=== PATIENT | female | born 1990 | race Caucasian/White ===

== ENCOUNTER 2022-01-22 10:36 | Emergency (ER) | payer OTHER, SELFPAY ==
[2022-01-22 10:47] VITALS: BP 118/69; PULSE 107; RESP 16; TEMP 36.3; O2SAT 100
--- NOTE | 2022-01-22 11:23 | ED.URI ---
HPI - URI/Sore Throat General Chief Complaint: Upper Respiratory Infection Stated Complaint: fever sore throat Source: patient and RN notes reviewed Mode of arrival: ambulatory Limitations: no limitations History of Present Illness HPI Narrative: 31 y/o female with DM presented for c/o headache, Fever, sore throat, nausea, body aches and fatigue for 4 days. Last night Temp 102.9. denies shortness of breath, wheezing, vomiting, diarrhea. Taking Tylenol for symptoms. Took 2 Negative covid tests at home. MD elicited complaint: cough Related Data Home Medications Medication Instructions Recorded Confirmed bupropion HCl 300 mg 24 hr tablet, 300 mg PO DAILY 01/22/22 01/22/22 extended release insulin lispro 100 unit/mL See Rx Instructions .Route .COMPLEX 01/22/22 01/22/22 subcutaneous solution (Humalog U-100 Insulin) levothyroxine 50 mcg tablet 50 mcg PO DAILY 01/22/22 01/22/22 sertraline 50 mg tablet 50 mg PO DAILY 01/22/22 01/22/22 Allergies Allergy/AdvReac Type Severity Reaction Status Date / Time No Known Allergies Allergy Unknown Verified 01/22/22 11:16 Review of Systems Review of Systems: CONSTITUTIONAL: Endorses malaise, chills, sweats, fever EYES: Denies visual changes, redness, or discharge ENT: Reports rhinorrhea, congestion, otalgia, sore throat CARDIOVASCULAR: Denies chest pain, palpitations, edema RESPIRATORY: Reports cough, post nasal drainage. Denies dyspnea GASTROINTESTINAL: Denies abdominal pain, vomiting, diarrhea MUSCULOSKELETAL: Endorses myalgia NEUROLOGIC:endorses headache Exam Narrative: GENERAL: Ill-appearing, nontoxic no acute distress. EYES: PERRLA, conjunctivae clear ENT: Mucous membranes moist. TMs pearly bhardwaj with dull light reflex bilaterally; no tragal tenderness. Oropharynx erythematous without lesions or exudate, tonsils 1+ no drooling, no hoarseness, no trismus, uvula midline. No tripod positioning, muffled voice, soft palate or pharyngeal wall bulging NECK: Supple. No lymphadenopathy CHEST: Clear to auscultation, breath sounds equal. No wheezing, rhonchi, rales, or stridor. No respiratory distress, speaks in full sentences. HEART: Regular rate and rhythm. No murmur heard. SKIN: Warm, dry, no rash. NEURO: Alert and oriented x3. Course Course Emergency Course: Patient is aware of diagnosis, understands and agrees to treatment plan. Anticipatory guidance given. Patient agrees to follow-up as directed and is aware of reasons to seek care at the emergency department. Portions of this record may have been created with voice recognition software Level of Care: Express Care Visit Vital Signs Vital signs: Vital Signs Temperature 97.4 F L 01/22/22 10:47 Pulse Rate 107 H 01/22/22 10:47 Respiratory Rate 16 01/22/22 10:47 Blood Pressure 118/69 01/22/22 10:47 Pulse Oximetry 100 01/22/22 10:47 Oxygen Delivery Room Air 01/22/22 10:47 Temperature 97.4 F L 01/22/22 10:47 Pulse Rate 107 H 01/22/22 10:47 Respiratory Rate 16 01/22/22 10:47 Blood Pressure 118/69 01/22/22 10:47 Pulse Oximetry 100 01/22/22 10:47 Oxygen Delivery Room Air 01/22/22 10:47 reviewed MDM - URI/Sore Throat MDM Narrative Medical decision making narrative: covid, flu and strep negative. results reviewed with patient. Advised supportive measures and signs/symptoms to go to the ER. Pt is appropriate for outpt treatment and f/u. Differential Diagnosis Differential diagnosis: Likely upper respiratory infection, sinusitis and viral infection Lab Data Labs: Influenza A Screen Negative Reference Range: Negative Influenza B Screen Negative Reference Range: Negative Strep Screen Presumptive Negative *(Reference Range: Negative)* Discharge Plan Discharge Clinical Impression: Viral infe
== END 2022-01-22 12:10 | disposition home or self-care (01) ==
PROVIDERS: Emergency Provider Nurse Practitioner Family; PCP Family Medicine
DX: B34.9 Viral infection, unspecified (principal); Z20.822 Contact with and (suspected) exposure to COVID-19
CPT/HCPCS: 87081; 87426; 87804; 87880; 99203; C9803; G0463

== ENCOUNTER 2024-04-19 09:30 | Emergency (ER) | payer OTHER, SELFPAY ==
[2024-04-19 09:36] VITALS: BP 118/71; PULSE 80; RESP 18; TEMP 36.9; O2SAT 100
--- NOTE | 2024-04-19 09:47 | ED.URI ---
HPI - URI/Sore Throat General Chief Complaint: Upper Respiratory Infection Stated Complaint: Headache/Fever/Body Aches Time Seen by Provider: 04/19/24 09:47 Source: patient, RN notes reviewed and old records reviewed Mode of arrival: ambulatory Limitations: no limitations History of Present Illness HPI Narrative: 33 year old female who presents to [facility] care with complaints of having headache starting yesterday with stuffy nose, chills and fevers up to 101.9F with some body aches.. Patient reports that she has noted some cough starting this morning. Patient reports no sore throat of any shortness of breath or any ear pain. Patient did home COVID test last night which was positive and she needs work note.She reports that she has been taking Emerg C and dual action Tylenol and Ibuprofen. MD elicited complaint: fever, cough, rhinorrhea, nasal congestion and other (headache and body ache) Pertinent past history: other (diabetes on insulin pump) Onset (ago): day(s) (day 2 of symptoms) Severity: moderate Able to tolerate fluids by mouth: Yes Treatments prior to arrival: other (dual action Ibuprofen and Tylenol and Emerg C) Related Data Home Medications ?Medication ?Instructions ?Recorded ?Confirmed ?Last Taken ?Type bupropion HCl 300 mg 24 hr tablet, 300 mg PO DAILY 01/22/22 01/22/22 Unknown History extended release insulin lispro 100 unit/mL See Rx Instructions .Route .COMPLEX 01/22/22 04/19/24 Unknown History subcutaneous solution (Humalog U-100 Insulin) levothyroxine 50 mcg tablet 50 mcg PO DAILY 01/22/22 04/19/24 Unknown History sertraline 50 mg tablet 50 mg PO DAILY 01/22/22 01/22/22 Unknown History bupropion HCl 150 mg 24 hr tablet, mg PO 04/19/24 Unknown History extended release Allergies Allergy/AdvReac Type Severity Reaction Status Date / Time No Known Allergies Allergy Unknown Verified 04/19/24 09:41 Review of Systems Review of Systems: CONSTITUTIONAL: Reports malaise, chills, sweats, or fever. EYES: Denies visual changes, redness, or discharge. ENT: Reports rhinorrhea, congestion, sinus pain,no otalgia and no sore throat. CARDIOVASCULAR: Denies chest pain, palpitations, or edema. RESPIRATORY: Reports cough.? Denies dyspnea. GASTROINTESTINAL: Denies abdominal pain, nausea, vomiting, diarrhea SKIN: Denies rash or itching. MUSCULOSKELETAL: Reports myalgia. NEUROLOGIC: Reports headache. All systems reviewed & are unremarkable except as noted in HPI and below PMFSH Past Medical History Medical History (Updated 04/21/24 @ 08:26 by Tanya Tucker NP) Diabetes on insulin pump Hypothyroidism Anxiety and depression Social History Social History (Updated 04/21/24 @ 08:27 by Tanya Tucker NP) Smoking status: Never smoker Alcohol intake: current Alcohol use details: rare Substance use type: does not use Living arrangements: with family Gender identity (if verbalized by the patient): Female Comments At time of signature, agree with nursing past medical, surgical, social and family history. There is no relevant family history pertinent to the presenting complaint Exam Narrative: GENERAL: ill-appearing, well-nourished, and in no acute distress. HEAD: Normocephalic EYES: PERRLA, conjunctivae clear ENT: Nares clear, turbinates edematous and erythematous, clear discharge. Mucous membranes moist. TM pearly bhardwaj with dull light reflex bilaterally; no tragal tenderness. Oropharynx erythematous without lesions. Tonsils not enlarged and without exudate, no drooling, no hoarseness, no trismus, uvula midline.post nasal drainage NECK: Supple. No lymphadenopathy CHEST: Clear to auscultation, breath sounds equal. No wheezing, rhonchi, rales, or stridor. No respiratory distress, speaks in full sentences.cough, SAO2 100% on room air HEART: Regular rate and rhythm. No murmur heard. SKIN: Warm, dry, no rash. NEURO: Alert and oriented x3. PSYCH: Normal mood and affect Course Course Emergency Course: Patient is aware of diagnosis, understands and agrees to treatment plan.? Anticipatory guidance given.? Patient agrees to follow-up as directed and is aware of reasons to seek care at the emergency department. Portions of this record may have been created with voice recognition software Level of Care: Express Care Visit Vital Signs Vital signs: Vital Signs Temperature 36.9 C 04/19/24 09:36 Pulse Rate 80 04/19/24 09:36 Respiratory Rate 18 04/19/24 09:36 Blood Pressure 118/71 04/19/24 09:36 Pulse Oximetry 100 04/19/24 09:36 Oxygen Delivery Room Air 04/19/24 09:36 Temperature 36.9 C 04/19/24 09:36 Pulse Rate 80 04/19/24 09:36 Respiratory Rate 18 04/19/24 09:36 Blood Pressure 118/71 04/19/24 09:36 Pulse Oximetry 100 04/19/24 09:36 Oxygen Delivery Room Air 04/19/24 09:36 Reviewed MDM - URI/Sore Throat MDM Narrative Medical decision making narrative: Differential diagnosis considered: Jones virus, strep pharyngitis, allergic rhinitis, upper respiratory tract infection, sinusitis, rhinosinusitis, nasopharyngitis. viral pharyngitis, otitis media, otitis externa, pneumonia, bronchitis, viral cough syndrome, viral syndrome, and influenza.? Exam findings show no acute concerns or changes; patient is non-toxic appearing and is in no distress.? Patient is appropriate for outpatient treatment and follow-up. Differential Diagnosis Differential diagnosis: Likely upper respiratory infection, sinusitis, viral infection, influenza and other (COVID) Medical Records Attestation: I reviewed the patient's medical records. Lab Data Attestation: I reviewed the patient's lab results. Lab results narrative: Patient reports home COVID test positive last night Critical Care Time Critical Care Time Critical Care Time: No Discharge Plan Discharge Clinical Impression: COVID-19 Patient Disposition: Home, Self-Care Condition: Stable Instructions: How to Recover from COVID-19 at Home (ED) Additional Instructions: Increase fluids especially juices and water [id number] cough and cold medicine of your choice for your symptoms Zyrtec Claritin or Karla daily may include plain Sudafed in a.m. and p.m. Tylenol or ibuprofen for any fever pain recommend checking your tab every 4 hours alternating Tylenol or ibuprofen Recommend Delsym or Robitussin DM cough syrup heat to the face 20-30 minutes 4-6 times a day for pain Salt water gargles, throat lozenges or throat sprays as desired Must quarantine for 5 days from start of symptoms COVID-19 DISCHARGE The following recommendations have been made by the CDC and local Health Departments, regarding COVID-19: Those individuals with mild cases of COVID-19 can generally be discontinued from isolation, 5 days AFTER the onset of symptoms AND the resolution of fever for 24hrs (without the use of fever-reducing medications) Those individuals who were asymptomatic, and tested positive, are discontinued from isolation 10 days AFTER their first positive COVID-19 test Those individuals with SEVERE to CRITICAL illness or immunocompromised diseases may require up to 20 days of home isolation or hospitalization Majority of mild to moderate cases can be treated at home, without hospitalization or prescription medications You do not need a negative test result to return to work/school, assuming the above recommendations have been met and you are not symptomatic. At this time, return to work/school notes will not be provided. Guidelines from the local Health Department, CDC, and workplace are expected to be followed. All individuals in the household need to remained quarantined for up to 14 days if asymptomatic OR 10 days after the start of symptoms. Everyone in the home DOES NOT require testing, they are presumed positive and should quarantine as directed. Treating symptoms for mild to moderate cases may include: Tylenol, Flonase/nasal spray, OTC cold/flu medications recommended from your provider or any necessary prescription medications provided at your visit or from your PCP IF YOU TESTED NEGATIVE If you are symptomatic with reason to believe you have COVID-19, there is a high possibility your rapid test may not have detected the virus. Rapid testing is dependent on timing and viral load and may have a false-negative reading You should follow appropriate guidelines regarding quarantine, hand washing, mask wearing, and social distancing You may be sent for PCR testing as an outpatient to the [place] testing site Common Adult Symptoms: Fever/chills Cough Shortness of breath Fatigue, muscle aches Headache Loss of taste/smell Sore throat, congestion, runny nose GI symptoms (nausea, vomiting, diarrhea) Common Pediatric Symptoms Cough Fever GI symptoms (diarrhea, upset stomach, nausea, vomiting) Symptoms may differ in severity however, most cases do not require hospitalization. WHEN TO SEEK ER EVALUATION/TREATMENT Severe/persistent shortness of breath or difficulty breathing Elevated, persistent fevers without resolution with fever-reducing medications Chest pain Extreme fatigue/lethargy Complications of pre-existing disease Patient Language: Hungarian Prescriptions: No Action levothyroxine 50 mcg tablet 50 mcg PO DAILY insulin lispro [Humalog U-100 Insulin] 100 unit/mL solution See Rx Instructions .ROUTE .COMPLEX Rx Instructions: as prescribed sertraline 50 mg tablet 50 mg PO DAILY bupropion HCl 300 mg tablet extended release 24 hr 300 mg PO DAILY bupropion HCl 150 mg tablet extended release 24 hr PO Follow-up/Referrals: Leno,Olena Anderson MD [Primary Care Provider] - Stand Alone Forms: Work/School Release IP Time of Disposition: 10:05 [place] Coma Scale Eyes: Open Verbal: Oriented and Alert Motor: Follows Commands Zora Coma Total Score: 15
--- OUTSIDE RECORDS SUMMARY | 2024-04-19 10:12 | XMS_ITS | Referral Summary ---
Author Organization [facility] [place] [address] [place] [address] Address [address] [place] [address] Care Team Providers Care Appliance Counselor Name Role Phone Olena Burr MD Primary Care Provider [phone] Encounters Date Type Department Care Team Description 04/11/2024 8:30 AM [facility] Office Visit [facility] at [address] [place] [address] Kym Gill, [place] Type 1 diabetes mellitus with hyperglycemia (HCC) (Primary Dx); Acquired hypothyroidism; Medtronic [address] Ins[address] pump in place; Class 2 severe obesity due to excess calories with serious comorbidity and body mass index (BMI) of 39.0 to 39.9 in adult (HCC) 02/28/2024 11:13 AM CLOTH GRADER SUPERVISOR - 02/28/2024 12:49 PM [facility] Emergency [facility] Emergency Department [address] [place] [address] Acute bilateral low back pain with left-sided sciatica (Primary Dx); Left hip pain Discharge Disposition: Discharge to home or self care from Last 3 Months Allergies Active Allergy Reactions Criticality Noted Date Comments Adhesive Rash Medium 03/09/2022 Morphine Nausea only Low 03/11/2022 Phenylephrine Hcl Angioedema High 01/03/2024 Medications sertraline (ZOLOFT) 50 mg tabletIndication s:Anxiety with Depression Take 1 tablet (50 mg total) by mouth every morning 11/27/202 2 Active acetaminophen (TYLENOL) 500 mg tablet Take 2 tablets (1,000 mg total) by mouth every 6 (six) hours as needed for pain Active ibuprofen (ADVIL,MOTRIN) 200 mg tab/cap Take 3 tablet/capsule (600 mg total) by mouth every 6 (six) hours as needed for pain Active buPROPion XL (WELLBUTRIN XL) 150 mg 24 hr tablet Take 1 tablet (150 mg total) by mouth daily 4 Active acetone, urine, test stripIndications :Diagnostic Test for Ketonuria Use to test for ketones when feeling poorily. E10.65 100 strip 11 5 Active insulin lispro (HumaLOG, ADMELOG) 100 unit/mL vial for injection INFUSE HUMALOG PER INSULIN PUMP. TOTAL DAILY DOSE 100 UNITS. 90 mL 4 5 Active levothyroxine (SYNTHROID) 50 mcg tabletIndication s:hypothyroidism Take 1 tablet (50 mcg total) by mouth every morning 90 tablet 4 5 Active blood glucose diagnostic (Accu-Chek Guide test strips) strip Use to calibrate insulin pump/sensor up to 6 times/day. E11.65 200 each 5 5 Active CONTOUR NEXT TEST STRIPS strip 3 (three) times a day 7 9 025 Discontin ued(Thera py completed ) insulin lispro (HumaLOG, ADMELOG) 100 unit/mL vial for injection INFUSE HUMALOG PER INSULIN PUMP. TOTAL DAILY DOSE 100 UNITS. 90 mL 4 4 025 Discontin ued(Reord er) pediatric multivitamin tablet,chewableI ndications:Vitam in Deficiency Prevention Take 1 tablet by mouth daily Mariinstonzoey 025 Discontin ued(Thera py completed ) insulin lispro-aabc (LYUMJEV) 100 unit/mL vial for injection FOLLOW SLIDING SCALE DOSE DIRECTED. MAX DAILY DOSE OF 90 UNITS DAILY 025 Discontin ued(Thera py completed ) meloxicam (MOBIC) 15 mg tablet Take 1 tablet (15 mg total) by mouth daily 30 tablet 11 4 025 Discontin ued(Thera py completed ) levothyroxine (SYNTHROID) 50 mcg tabletIndication s:hypothyroidism Take 1 tablet (50 mcg total) by mouth every morning 90 tablet 4 4 025 Discontin ued(Reord er) Active Problems Problem Noted Date Diagnosed Date Thyroid enlargement 09/07/2023 Overview (10/20/2023): 8/24-1.2 cm TR 3 nodule within the left thyroid lobe. repeat a thryoid ultrsound at 1, 3 and 5 years Assessment & Plan (10/20/2023 5:20 PM CDT): Enlargement thryoid by exam. Reports history of goiter. Thyroid ultrasound order. Reports trouble swallowing at times. 8/24-1.2 cm TR 3 nodule within the left thyroid lobe. repeat a thryoid ultrsound at 1, 3 and 5 years Medtronic [address] pump in place 09/07/2023 Assessment & Plan (04/11/2024 9:05 AM CLOTH GRADER SUPERVISOR): This is a chronic condition which is not at goal. Download reviewed from 03/29/2024 to 04/11/24 Type of insulin pump- Medtronics 780 G Pump settings : Basal- 1.25 IC - 6 ISF-30 Active insulin time 2hrs. TARGET GLUCOSE- 100-110 In auto mode 88% time a day Avg BG- 156 +/-69 Avg Total daily insulin- 72 units Avg daily basal - 33 units (46%) Avg daily bolus - 39 units (54%) Interpretation-average blood sugar 156+/- 69. 69% time in range. 29% hyperglycemia. 2% hypoglycemia. Encouraged to stay in smart guard as much as possible. encouraged to bolus for elevated blood sugars. She boluses 2-4 times per day. Assessment & Plan (01/05/2024 9:38 AM CDT): This is a chronic condition which is not at goal. Download reviewed from 12/23/2023 to 01/05/2024 Type of insulin pump- Medtronics 780 G Pump settings : Basal- 1.25 IC - 6 ISF-30 Active insulin time 2hrs. TARGET GLUCOSE- 100-110 In auto mode 85% time a day Avg BG- 1 63 +/-91 Avg Total daily insulin- 54 units Avg daily basal - 23 units (43%) Avg daily bolus - 31 units (57%) Interpretation-average blood sugar 163. 71% time in range. 27% hyperglycemia. 2% hypoglycemia. Encouraged to stay in smart guard as much as possible. encouraged to bolus for elevated blood sugars. She boluses 1-4 times per day. Assessment & Plan (09/07/2023 10:45 AM CDT): This is a chronic condition which is not at goal. Download reviewed from 08/25/2023 to 09/07/2023 Type of insulin pump- Mobursttronics 780 G Pump settings : Insulin pump settings adjusted Basal- 1.25 IC - 6 ISF-30 Active insulin time 2hrs. TARGET GLUCOSE- 100-110 In auto mode 76% time a day Avg BG- 182 +/-87 Avg Total daily insulin- 60 units Avg daily basal - 30 units (50%) Avg daily bolus - 30 units 950%) Interpretation-average blood sugar 182. 69% time in range. 28% hyperglycemia. 1% hypoglycemia. Encouraged to stay in smart guard as much as possible. Irregular menstrual cycle 08/27/2016 Encounter for contraceptive management 7 Type 1 diabetes mellitus with hyperglycemia 02/06 Assessment & Plan (01/05/2024 9:34 AM CDT): This is a chronic condition which is elevated, not at goal, worsening per A1c . Goal is less than 7%. Insulin pump download shows a GMI if 7%. Which is much improved from A1c over the last 2 weeks Personally reviewed most recent A1c - Lab Results Component Value Date HGBA1C 8.4 01/05/2024 Personally reviewed POC blood sugar- at goal of 80-180 Lab Results Component Value Date POCGLU 179 01/05/2024 Medication- Continue Medtronic 780 G with guardian for sensor with Humalog insulin. Basal-1.2, carb ratio-6, insulin sensitivity-30, target blood glucose is 100- 110. Active insulin time is 2hrs Monitor blood sugar continuously with guardian cgm. Encouraged annual eye exam. Monofilament foot exam completed. Protective senses not intact eGFR- greater than 90 Kidney function-at goal Urine microalbumin/creatinine ratio - at goal. Goal is <30 not treated with PALOMA/ARB Assessment & Plan (09/07/2023 10:40 AM CDT): This is a chronic condition which is Elevated, not at goal . Goal is less than 7%. Personally reviewed most recent A1c - Lab Results Component Value Date HGBA1C 8.2 09/07/2023 Personally reviewed POC blood sugar- not at goal of 80-180 Lab Results Component Value Date POCGLU 218 09/07/2023 Medication- Continue Medtronic 780 G with guardian for sensor with Humalog insulin. Insulin pump settings adjusted. Basal-1.2, carb ratio-6, insulin sensitivity-30, target blood glucose is 100-110. Active insulin time is 2hrs Monitor blood sugar continuously with guardian 4 sensor cgm. Encouraged annual eye exam. last dilated eye exam was [facility] in [place] Eye exam 04/30. Discussed local center such as [facility] in [place] or Dr. Daniels in [place]. Monofilament foot exam completed. Protective senses intact Personally reviewed CMP eGFR- >90 Kidney function-normal Urine microalbumin/creatinine ratio - needed. Goal is <30 not treated with PALOMA/ARB B/P today- at goal . Goal is <140/90. lipid panel ordered. Goal is less than 70. Attempting to get . Will not start statin therapy. Hypothyroidism 02/27/2016 Assessment & Plan (01/05/2024 9:34 AM CDT): This is a chronic condition which is At goal goal of TSH between 0.3 to 4.2 mclUnits/ml Lab Results Component Value Date TSH 3.44 09/07/2023 Continues Levothryoxine 50 mcg po daily in am Discussed the importance of taking Levothryoxine on a empty stomach, which means one hour before eating or two hours after eating, food in the stomach will interfere with absorption of Levothyroxine, Calcium, antacids and iron supplements will interfere with the absorption of Levothyroxine, encouraged to take these at a different time of the day. Assessment & Plan (09/07/2023 10:41 AM CDT): This is a chronic condition Goal of TSH between 0.3 to 4.2 mclUnits/ml Lab repeated Continue Levothryoxine 50 mcg po daily in am Discussed the importance of taking Levothryoxine on a empty stomach, which means one hour before eating or two hours after eating. Discussed food in the stomach will interfere with absorption of Levothyroxine. Discussed Calcium, antacids and iron supplements will interfere with the absorption of Levothyroxine, encouraged to take these at a different time of the day. Class 2 severe obesity due t o excess calories with serious comorbidity and body mass index (BMI) of 39.0 to 39.9 in adult 10/10/2014 Assessment & Plan (01/05/2024 9:39 AM CDT): This is a chronic condition which continues to improve 6 lbs. Weight loss since last office visit Encouraged healthy eating which includes a low carb diet. Avoiding processed foods, sweets and fried foods. Encouraged 30 minutes of walking at least 5 days per week Discussed that exercise can be broken down into small sessions- for example 2- 15 minutes sessions or 3- 10 minutes sessions. Assessment & Plan (09/07/2023 10:41 AM CDT): This is a chronic condition which continues Encouraged healthy eating which includes a low carb diet. Avoiding processed foods, sweets and fried foods. Encouraged 30 minutes of walking at least 5 days per week Resolved Problems Problem Noted Date Diagnosed Date Resolved Date Trimalleolar fracture of right ankle 03/11/2022 09/07/2023 Overview (03/11/2022): Added automatically from request for surgery [id number] Closed nondisplaced fracture of second metatarsal bone of left foot 08/01/2019 09/07/2023 Social History Tobacco Use Types Packs/Day Years Used Date Smoking Tobacco: Never Smokeless Tobacco: Never Tobacco Cessation:Counseling Given: Not Answered AUDIT-C Answer Date Recorded Q1: How often do you have a drink containing alc ohol? Monthly or less 03/17/2022 Q2: How many drinks containi ng alcohol do you have on a typical day when you are drinking? 1 or 2 03/17/2022 Q3: How often do you have si x or more drinks on one occasion? Never 03/17/2022 Personal Safety Answer Date Recorded Have you ever been in or are you currently in a harmful physical or emotional relationship or is someone making you feel afraid or unsafe? Denies 02/28/2024 Comments No Sex and Gender Information Value Date Recorded Sex Assigned at Not on file Legal Sex Female 8:59 PM CLOTH GRADER SUPERVISOR Gender Identity Not on file Sexual Orientation Not on file Last Filed Vital Signs Vital Sign Reading Time Taken Comments Blood Pressure 128/68 04/11/2024 8:32 AM CLOTH GRADER SUPERVISOR Pulse 69 02/28/2024 12:29 PM CLOTH GRADER SUPERVISOR Temperature 36.1 C (96.9 F) 02/28/2024 9:50 AM CLOTH GRADER SUPERVISOR Respiratory Rate 16 02/28/2024 12:29 PM CLOTH GRADER SUPERVISOR Oxygen Saturation 97% 02/28/2024 12:29 PM CLOTH GRADER SUPERVISOR Inhaled Oxygen Concentration - - Weight 120 kg (264 lb 8 oz) 04/11/2024 8:[address] Height 175.3 cm (5' 9 ) 04/11/2024 8:32 AM CLOTH GRADER SUPERVISOR Body Mass Index 39.06 04/11/2024 8:32 AM CLOTH GRADER SUPERVISOR Plan of Treatment Not on file Medical Devices Implanted Type Area Electrologist Device Identifier Shelf Expiration Date Model / Serial / Lot Synthes 2.7mm 5mm 22mm 2.5mm Self Tap Spherical Head Small Hexagonal 202.822 - [id number] Implanted:Qty: 1 on 03/17/2022 by David Mckeon MD at [facility] Right: Fibula Synthes I 202.822 / / Synthes Lcp 12mm [id number] .7mm 7 Hole Collar 1/3 Tubular Plate Bone 241.371 - [id number] Implanted:Qty: 1 on 03/17/2022 by David Mckeon MD at [facility] Right: Fibula Synthes I 241.371 / / Synthes 3.5mm 6mm 14mm 2.5mm Self Tap Small Hexagonal Socket Low Profile 204.814 - [id number] Implanted:Qty: 1 on 03/17/2022 by David Mckeon MD at [facility] Right: Fibula Synthes I 204.814 / / Synthes 3.5mm 6mm 12mm 2.5mm Self Tap Small Hexagonal Socket Low Profile 204.812 - [id number] Implanted:Qty: 1 on 03/17/2022 by David Mckeon MD at [facility] Right: Fibula Synthes I 204.812 / / Synthes 2.7mm 5mm 20mm 2.5mm Self Tap Spherical Head Small Hexagonal 202.820 - [id number] Implanted:Qty: 1 on 03/17/2022 by David Mckeon MD at [facility] Right: Fibula Synthes I 202.820 / / Synthes 3.5mm 2.9mm 20mm Self Tap Lock Stardrive Conical Head T15 Full 212.106 - [id number] Implanted:Qty: 1 on 03/17/2022 by David Mckeon MD at [facility] Right: Fibula Synthes I 212.106 / / Synthes 3.5mm 2.9mm 22mm Self Tap Lock Stardrive Conical Head T15 Full 212.107 - [id number] Implanted:Qty: 1 on 03/17/2022 by David Mckeon MD at [facility] Right: Fibula Synthes I 212.107 / / Synthes 3.5mm 6mm 75mm 2.5mm Self Tap Small Hexagonal Socket Low Profile 204.875 - [id number] Implanted:Qty: 1 on 03/17/2022 by David Mckeon MD at [facility] Synthes I 204.875 / / Procedures Procedure Name Priority Date/Time Associated Diagnosis Comments POCT HEMOGLOBIN A1C Routine 04/11/2024 8 :36 AM CLOTH GRADER SUPERVISOR Type 1 diabetes mellitus with hyperglycemia (HCC) POCT GLUCOSE Routine 04/11/2024 8:36 AM CLOTH GRADER SUPERVISOR Type 1 diabetes mellitus with hyperglycemia (HCC) XR SPINE LUMBAR 2 OR 3 VIEWS ED 02/28/2024 10:28 AM CLOTH GRADER SUPERVISOR XR HIP LEFT W PELVIS 2 OR 3 VIEWS ED 02/28/2024 10:28 AM CLOTH GRADER SUPERVISOR EGFR Routine 09/07/2023 10:24 AM CDT Type 1 diabetes mellitus with hyperglycemia (HCC) LIPID PANEL Routine 09/07/2023 10:24 AM CDT Type 1 diabetes mellitus with hyperglycemia (HCC) ALBUMIN CREATININE RATIO, URINE Routine 09/07/2023 10:24 AM CDT Type 1 diabetes mellitus with hyperglycemia (HCC) THYROID FUNCTION CASCADE Routine 09/07/2023 10:24 AM CDT Acquired hypothyroidism Type 1 diabetes mellitus with hyperglycemia (HCC) from Last 3 Months or Most Recently Relevant to Health Maintenance Results * (ABNORMAL) POCT hemoglobin A1c (04/11/2024 8:36 AM CLOTH GRADER SUPERVISOR) Hemoglobin A1C, POC 8.1 4.0 - 5.6 % Blood 04/11/2024 8:36 AM CLOTH GRADER SUPERVISOR us Kym Gill EXHAUST AND MUFFLER REPAIRER POINT OF CARE TEST ORDERABLES F inal Result * POCT glucose (04/11/2024 8:36 AM CLOTH GRADER SUPERVISOR) Glucose Blood, POC 173 mg/dL Blood 04/11/2024 8:36 AM CLOTH GRADER SUPERVISOR us Kym Gill EXHAUST AND MUFFLER REPAIRER POINT OF CARE TEST ORDERABLES F inal Result * XR Hip Left 2 or 3 Views W Pelvis (02/28/2024 10:28 AM CLOTH GRADER SUPERVISOR) Anatomical Region Laterality Modality Lower Extremities, Hip, Pelvis Left C omputed Radiography 02/28/2024 11:1 4 AM CLOTH GRADER SUPERVISOR Narrative 02/28/2024 11:17 AM CLOTH GRADER SUPERVISOR EXAM DESCRIPTION: XR HIP LEFT 2 OR 3 VIEWS W PELVIS REASON FOR STUDY: pain TECHNIQUE: AP and lateral radiographic view(s) of the left hip and AP pelvis . COMPARISON: No comparison. FINDINGS: BONES/JOINTS: There is no acute fracture, malalignment or osseous abnormality. Possible mild joint space narrowing. SOFT TISSUES: Within normal limits. IMPRESSION: No acute osseous abnormality. There may be mild joint space narrowing which could reflect mild arthritis. THIS IS AN ELECTRONICALLY VERIFIED FINAL REPORT 02/28/2024 11:17 AM - Electronically signed by Lei Fitzgerald M.D. LC: ZAC Report ID: [id number] Reading Location: [id number] Procedure Note Patty Fitzgerald MD - 02/28/2024 EXAM DESCRIPTION: XR HIP LEFT 2 OR 3 VIEWS W PELVIS REASON FOR STUDY: pain TECHNIQUE: AP and lateral radiographic view(s) of the left hip and APpelvis . COMPARISON: No comparison. FINDINGS: BONES/JOINTS: There is no acute fracture, malalignment or osseousabnormality. Possible mild joint space narrowing. SOFT TISSUES: Within normal limits. IMPRESSION: No acute osseous abnormality. There may be mild joint space narrowingwhich could reflect mild arthritis. THIS IS AN ELECTRONICALLY VERIFIED FINAL REPORT 02/28/2024 11:17 AM - Electronically signed by Lei Fitzgerald M.D. LC: ZAC Report ID: [id number] Reading Location: [id number] Robert Cartagena MD IMG XR PROCEDURES Final Result * XR Spine Lumbar 2 or 3 Views (02/28/2024 10:28 AM CLOTH GRADER SUPERVISOR) Anatomical Region Laterality Modality Spine N/A Computed Radiogr aphy 02/28/2024 11:1 7 AM CLOTH GRADER SUPERVISOR Narrative 02/28/2024 11:21 AM CLOTH GRADER SUPERVISOR EXAM DESCRIPTION: XR SPINE LUMBAR 2 OR 3 VIEWS REASON FOR STUDY: pain TECHNIQUE: 3 radiographic view(s) of the lumbar spine. COMPARISON: No comparison. FINDINGS: ALIGNMENT: Anatomic. VERTEBRAE: Vertebral bodies of normal height. DISCS: Disc height well-maintained. SOFT TISSUES: Within normal limits. IMPRESSION: No acute spinal abnormality. THIS IS AN ELECTRONICALLY VERIFIED FINAL REPORT 02/28/2024 11:21 AM - Electronically signed by Lei Fitzgerald M.D. LC: ZAC Report ID: [id number] Reading Location: [id number] Procedure Note Patty Fitzgerald MD - 02/28/2024 EXAM DESCRIPTION: XR SPINE LUMBAR 2 OR 3 VIEWS REASON FOR STUDY: pain TECHNIQUE: 3 radiographic view(s) of the lumbar spine. COMPARISON: No comparison. FINDINGS: ALIGNMENT: Anatomic. VERTEBRAE: Vertebral bodies of normal height. DISCS: Disc height well-maintained. SOFT TISSUES: Within normal limits. IMPRESSION: No acute spinal abnormality. THIS IS AN ELECTRONICALLY VERIFIED FINAL REPORT 02/28/2024 11:21 AM - Electronically signed by Lei Fitzgerald M.D. LC: ZAC Report ID: [id number] Reading Location: [id number] Robert Cartagena MD IMG XR PROCEDURES Final Result * eGFR (09/07/2023 10:24 AM CDT) eGFR >90 >=60 mL/min/1. 73 m2 Comment: Interpretive Data Reference Interval Normal >/= 90 mL/min/1.73m2 Mildly decreased* 60 - 89 mL/min/1.73m2 Mildly to moderately decreased 45 - 59 mL/min/1.73m2 Moderately to severely decreased 30 - 44 mL/min/1.73m2 Severely decreased 15 - 29 mL/min/1.73m2 Kidney Failure < 15 mL/min/1.73m2 *Relative to young adult level Estimated glomerular filtration rate is determined by the 2020 CKD-EPI equation recommended by the National Kidney Foundation (A Unifying Approach to GFR Estimation: Recommendations of the NKF-ASK Task Force on Reassessing the Inclusion of Race in Diagnosing Kidney Disease, JASN 2020). The CKD-EPI equation should not be used for patients with unstable renal function and has not been validated in children and those over 70. Current interpretive data was last reviewed 2021. Blood 09/07/2023 10:2 4 AM CDT 09/07/2023 6:25 PM CDT Kym Gill EXHAUST AND MUFFLER REPAIRER LAB BLOOD ORDERABLES Final Resu lt Performing Organization Address [facility] Phone Number [facility] [address] [facility] [place] [address] * Thyroid Function [place] (09/07/2023 10:24 AM CDT) TSH 3.44 0.30 - 4.20 mcIUnit/mL Blood 09/07/2023 10:2 4 AM CDT 09/07/2023 6:14 PM CDT Result [facility] Kym Gill NP LAB BLOOD ORDERABLES Final Resu lt Performing Organization Address [facility] Phone Number [facility] [address] [place] [address] * Albumin Creatinine Ratio, Urine (09/07/2023 10:24 AM CDT) Albumin Ur <12.0 mg/L Comment: Interpretive Data No reference range established. Current interpretive data was last revised 2018. Creatinine Ur 270.8 mg/dL [facility] Comment: Interpretive Data No reference range established. Current interpretive data was last revised 2018. Albumin Creatinine Ratio, Ur <4 1 - 29 mg/g [facility] Urine 09/07/2023 10:2 4 AM CDT 09/07/2023 6:14 PM CDT Kym Gill NP LAB URINE ORDERABLES Final Resu lt Performing Organization Address [facility] de Phone Number [facility] [address] [place] [address] * (ABNORMAL) Lipid panel (09/07/2023 10:24 AM CDT) Cholesterol 209(H) 30 - 199 mg/dL Comment: Interpretive Data Ages < or = 19 years Acceptable: <170 mg/dL Borderline high: 170-199 mg/dL High: >or= 200 mg/dL Ages > or = 20 years Desirable: <200 mg/dL Borderline high: 200-239 mg/dL High: >or= 240 mg/dL Literature References: 1. Expert Panel on Integrated Guidelines for Cardiovascular Health and Risk Reduction in Children and Adolescents. Pediatrics 2011;128:S213 2. NCEP Expert Panel. Circulation 2004;110:227 Current Interpretive Data was last revised on 2017. Triglycerides 100 <=149 mg/dL [facility] Comment: Interpretive Data Ages < or = 9 years Acceptable: <75 mg/dL Borderline high: 75-99 mg/dL High: >or= 100 mg/dL Ages 10 to 20 years Acceptable: <90 mg/dL Borderline high: 90-129 mg/dL High: >or= 130 mg/dL Ages > or = 20 years Desirable: <150 mg/dL Borderline high: 150-199 mg/dL High: 200-499 mg/dL Very high: >or= 499 mg/dL Literature References: 1. Expert Panel on Integrated Guidelines for Cardiovascular Health and Risk Reduction in Children and Adolescents. Pediatrics 2011;128:S213 2. NCEP Expert Panel. Circulation 2004;110:227 Current Interpretive Data was last revised on 2017. HDL 39(L) >=40 mg/dL [facility] Comment: Interpretive Data Ages < or = 19 years Acceptable: >45 mg/dL Borderline low: 40-45 mg/dL Low: <40 mg/dL Ages > or = 20 years Desirable: >or= 60 mg/dL Low: <40 mg/dL Literature References: 1. Expert Panel on Integrated Guidelines for Cardiovascular Health and Risk Reduction in Children and Adolescents. Pediatrics 2011;128:S213 2. NCEP Expert Panel. Circulation 2004;110:227 Current Interpretive Data was last revised on 2017. LDL, calculated 150(H) <=129 mg/dL [facility] Comment: Interpretive Data Ages < or = 19 years Acceptable: <110 mg/dL Borderline high: 110-129 mg/dL High: >or= 130 mg/dL Ages > or = 20 years Optimal: <100 mg/dL Near optimal: 100-129 mg/dL Borderline high: 130-159 mg/dL High: >160 mg/dL Literature References: 1. Expert Panel on Integrated Guidelines for Cardiovascular Health and Risk Reduction in Children and Adolescents. Pediatrics 2011;128:S213 2. NCEP Expert Panel. Circulation 2004;110:227 Current Interpretive Data was last revised on 2017. Non-HDL Cholesterol 170 mg/dL [facility] Comment: Interpretive Data Ages < or = 19 years Acceptable: <120 mg/dL Borderline high: 120-144 mg/dL High: >145 mg/dL Ages > or = 20 years When triglycerides are >200 mg/dL, Non-HDL cholesterol is a secondary target of therapy with treatment goals that are 30 mg/dL greater than the LDL cholesterol target. Literature References: 1. Expert Panel on Integrated Guidelines for Cardiovascular Health and Risk Reduction in Children and Adolescents. Pediatrics 2011;128:S213 2. NCEP Expert Panel. Circulation 2004;110:227 Current Interpretive Data was last revised on 2017. Chol/HDL ratio 5 [facility] Blood 09/07/2023 10:2 4 AM CDT 09/07/2023 6:14 PM CDT Narrative [facility] - 09/07/2023 7:00 PM CDT These lab test should be done fasting. This means do not eat or drink for at least 12 hours prior to getting your blood drawn. Has the patient been fasting for 8 hours or more?->Yes Kym Gill NP LAB BLOOD ORDERABLES Final Resu lt [facility] [id number] Department [place] [address] from Last 3 Months or Most Recently Relevant to Health Maintenance Insurance [facility] Address: [place] [address] [facility] [place]: [place] [address] [employer]O Address: [place] [address] Care Teams Appliance Counselor Relationship Specialty Start Date End Date Olena Burr MD [address] [place] [address] PCP - General Family Medicine 03/11/22
--- OUTSIDE RECORDS SUMMARY | 2024-04-19 10:12 | XMS_ITS | Clinical Summary ---
Author Organization [facility] Address [address] [place] [address] Phone Care Team Providers Care Quantity Surveyor Name Role Phone Olena Burr MD Primary Care Provider [phone] Allergies Active Allergy Reactions Criticality Noted Date Comments Morphine Nausea Low 03/11/2022 Other-Environmental Allergen (Not Found In Search) Rash Medium 03/09/2022 Medications levothyroxine (SYNTHROID) 50 MCG Tablet Take 50 mcg by mouth. 08/12/2018 Active insulin lispro (HumaLOG) 100 UNIT/ML Solution INFUSE HUMALOG PER INSULIN PUMP. TOTAL DAILY DOSE 100 UNITS. 11/13/2023 Active sertraline (ZOLOFT) 50 MG Tablet Take 50 mg by mouth. 02/01/2022 Active buPROPion (WELLBUTRIN) 150 MG XL tablet Take 150 mg by mouth. 06/17/2023 Active acetaminophen (TYLENOL) 500 MG Tablet Take 1,000 mg by mouth. Active Social History Tobacco Use Types Packs/Day Years Used Date Smoking Tobacco: Never Smokeless Tobacco: Never Tobacco Cessation:Counseling Given: Not Answered Sexually Active Control Partners Comments Yes None Male Comments No Sex and Gender Information Value Date Recorded Sex Assigned at Not on file Legal Sex Female 8:29 AM CDT Gender Identity Not on file Sexual Orientation Not on file Last Filed Vital Signs Vital Sign Reading Time Taken Comments Blood Pressure 104/64 11/26/2023 8:47 AM CDT Pulse 92 11/26/2023 8:47 AM CDT Temperature 36.2 C (97.1 F) 11/26/2023 8:47 AM CDT Respiratory Rate 14 11/26/2023 8:47 AM CDT Oxygen Saturation 98% 11/26/2023 8:47 AM CDT Inhaled Oxygen Concentration - - Weight - - Height - - Body Mass Index - - Plan of Treatment Health Maintenance Due Date Last Done Comments Hepatitis C Virus (HCV) Screening 1990 TdaP Immunization 1990 Hepatitis B Immunization (1 of 3 - 19+ 3-dose series) 2009 Pap Smear 12/26/2011 Cervical Cancer Screening (CCS) 2020 HPV/Cotest 2020 Influenza Immunization (#1) 2023 SARS-COV-2 Immunization ( - 2023-25 season) 2023 Respiratory Syncytial Virus (RSV) Immunization (Adult) (1 - 1-dose 75+ series) 2065 Meningococcal Immunization (ACWY) Aged Out No longer eligible based on patient's age to complete this topic Pneumococcal Immunization Combined Aged Out No longer eligible based on patient's age to complete this topic Rotavirus Immunization Aged Out No lo nger eligible based on patient's age to complete this topic Insurance [address] [place] [address] Care Teams Quantity Surveyor Relationship Specialty [place] [address] [place] [address] [place] [address] PCP - General Family Medicine 11/26/23
--- OUTSIDE RECORDS SUMMARY | 2024-04-19 10:12 | XMS_ITS | Clinical Summary ---
Author Organization [address] Address [address] [place] [id number] Care Team Providers Care Checker Name Role Phone Olena Burr MD Primary Care Provider [phone] Allergies Active Allergy Reactions Criticality Noted Date Comments Adhesive Rash Medium 03/09/2022 Morphine Nausea only Low 03/11/2022 Phenylephrine Hcl Angioedema High 01/03/2024 Medications sertraline (ZOLOFT) 50 mg tabletIndication s:Anxiety with Depression Take 1 tablet (50 mg total) by mouth every morning 2 Active acetaminophen (TYLENOL) 500 mg tablet [...] Prevention Take 1 tablet by mouth daily Flinstones 025 Discontin ued(Thera py completed ) insulin [...] Diagnosed Date Thyroid enlargement 09/07/2023 Overview (10/20/2023): 8-1.2 cm TR 3 nodule within the left thyroid lobe. repeat a thryoid ultrsound at 1, 3 and 5 years Assessment & Plan (10/20/2023 5:20 PM CDT): Enlargement thryoid by exam. Reports history of goiter. Thyroid ultrasound order. Reports trouble swallowing at times. 824-1.2 cm TR 3 nodule within the left thyroid lobe. repeat a thryoid ultrsound at 1, 3 and 5 years ChaseFuturetronic [address] Insulin pump in place 09/07/2023 Assessment & Plan (04/11/2024 9:05 AM [employer]PLICATION [employer]): This is a chronic condition which is [...] 08/25/2023 to 09/07/2023 Type of insulin pump- Medtronics 780 G Pump settings : Insulin pump [...] eye exam. last dilated eye exam [facility] in [place] Eye exam 04/30. Discussed local center such as [facility] in [place] or Dr. Daniels in [place]. Monofilament foot exam completed. Protective senses intact [...] (03/11/2022): Added automatically from request for surgery [id number] Closed nondisplaced fracture of second metatarsal bone of left foot 08/01/2019 09/07/2023 Encounters Date Type Department Care Team Description 04/11/2024 8:30 AM [employer] Office Visit [facility] at [address] [address] Kym Gill, [place] Type 1 diabetes mellitus with hyperglycemia (HCC) (Primary Dx); Acquired hypothyroidism; Medtronic [address]; Class 2 severe obesity due to excess calories with serious comorbidity and body mass index (BMI) of 39.0 to 39.9 in adult (HCC) 02/28/2024 11:13 AM [employer] - 02/28/2024 12:49 PM [facility] Emergency [facility] Emergency Department [address] [place] [address] Acute bilateral low back pain with left-sided sciatica (Primary Dx); Left hip pain Discharge Disposition: Discharge to home or self care from Last 3 Months Surgical History Surgery Date Site/Laterality Comments CHOLECYSTECTOMY 03/08/2019 - 03/07/2020 WISDOM TOOTH EXTRACTION 03/08/2007 - 03/07/2008 KNEE SURGERY 03/08/2014 - 03/07/2015 Right Medical History Medical History Date Comments Diabetes mellitus (HCC) Depression Thyroid disease PONV (postoperative nausea a nd vomiting) Trimalleolar fracture of right ankle 03/11/2022 Added automatically from request for surgery [id number] Closed nondisplaced fracture of second metatarsal bone of left foot 08/01/2019 Anxiety Family History Medical History Relation Name Comments Asthma Brother Padilla Diabetes Father Kash Hypertension Father Kash Obesity Father Kash Depression Mother Carole Cancer Other 1 Reported Family History Of Cancer - aunt,grandma. (Added by TW Conv) Hypertension Other 2 Reported Previo us High Blood Pressure - dad. (Added by TW Conv) Ovarian cancer Other 3 Ovarian Cance r - aunt. (Added by TW Conv) Thyroid disease Other 4 Thyroid Diso rder - dad,grandma. (Added by TW Conv) Diabetes Other 5 Diabetes Mellit us - uncle. (Added by TW Conv) Heart disease Other 6 Heart Disease - grandpa. (Added by TW Conv) Depression Sister June Obesity Sister June Anesthesia problems Neg Hx Relation Name Status Comments Brother Padilla Father Kash Mother Carole Other 1 Other 2 Other 3 Other 4 Other 5 Other 6 Sister June Social History Tobacco Use Types Packs/Day Years [...] on file Legal Sex Female 8:59 PM [employer] Gender Identity Not on file Sexual Orientation Not on file Obstetrics History Last Filed Vital Signs Vital Sign Reading Time Taken Comments Blood Pressure 128/68 04/11/2024 8:32 AM [employer] Pulse 69 02/28/2024 12:29 PM [employer] Temperature 36.1 C (96.9 F) 02/28/2024 9:50 AM [employer] Respiratory Rate 16 02/28/2024 12:29 PM [employer] Oxygen Saturation 97% 02/28/2024 12:29 PM [employer] Inhaled Oxygen Concentration - - Weight 120 kg (264 lb 8 oz) 04/11/2024 8:[address] Height 175.3 cm (5' 9 ) 04/11/2024 8:32 AM [employer] Body Mass Index 39.06 04/11/2024 8:32 AM [employer] Plan of Treatment Health Maintenance Due Date Last Done Comments Cervical Cancer Screening 1990 Depression Screening 1990 Hepatitis C Screening 1990 Dilated Eye Exam 2000 DTaP/Tdap/Td Vaccine (6 - Tdap) 2001 05/29/1996, 07/31/1992, 07/05/1991, Additional history exists Varicella Vaccines (1 of 2 - 13+ 2-dose series) 12/26/2003 Regular Well Visit/Exam 18-64 2008 Pneumococcal vaccine <65 (2 of 2 - PCV) 10/04/2015 10/03/2014 Covid-19 Vaccine ( - 2023- season) 2023 09/16/2021, 06/17/2020, 05/27/2020 Influenza Vaccine (#1) 2023 , 01/07/2022, 12/07/2018 Albumin Creatinine Ratio, Urine 09/06/2024 09/07/2023 Lipid Panel 09/06/2024 09/07/2023 TSH Level 09/06/2024 09/07/2023 eGFR 09/06/2024 09/07/2023, 03/09/2022 Hemoglobin A1C 10/09/2024 04/11/2024, 12/08, 09/07/2023 Foot Exam 01/04/2025 01/05/2024, 09/07/2023 Hepatitis B Screening Completed 12/20/1996 , 07/03/1996, 05/29/1996 HPV Vaccines Aged Out No longer eligi ble based on patient's age to complete this topic Medical Devices Implanted Type [employer] Device Identifier Shelf Expiration Date Model / Serial / Lot Synthes 2.7mm 5mm 22mm 2.5mm Self Tap Spherical Head Small Hexagonal 202.822 - [id number] Implanted:Qty: 1 on 03/17/2022 by David Mckeon MD at [facility] Right: Fibula Synthes I 202.822 / / Synthes Lcp 12mm [id number] .[id number] 7 Hole Collar 03/10 Tubular Plate Bone 241.371 - [id number] Implanted:Qty: 1 on 03/17/2022 by David Mckeon MD at [facility] Right: Fibula Synthes I 241.371 / / Synthes 3.5mm 6mm 14mm 2.5mm Self Tap Small Hexagonal Socket Low Profile 204.814 - [id number] Implanted:Qty: 1 on 03/17/2022 by David Mckeon MD at [facility] Right: Fibula Synthes I 204.814 / / Synthes 3.5mm 6mm 12mm 2.5mm Self Tap Small Hexagonal Socket Low Profile 204.812 - [id number] Implanted:Qty: 1 on 03/17/2022 by David Mckeon MD at [facility] Right: Fibula Synthes I 204.812 / / Synthes 2.7mm 5mm 20mm 2.5mm Self Tap Spherical Head Small Hexagonal 202.820 - [id number] Implanted:Qty: 1 on 03/17/2022 by David Mckeon MD at [facility] Right: Fibula Synthes I 202.820 / / Synthes 3.5mm 2.9mm 20mm Self Tap Lock Stardrive Conical Head T15 Full 212.106 - [id number] Implanted:Qty: 1 on 03/17/2022 by David Mckeon MD at [facility] Right: Fibula Synthes I 212.106 / / Synthes 3.5mm 2.9mm 22mm Self Tap Lock Stardrive Conical Head T15 Full 212.107 - [id number] Implanted:Qty: 1 on 03/17/2022 by David Mckeon MD at [facility] Right: Fibula Synthes I 212.107 / / Synthes 3.5mm 6mm 75mm 2.5mm Self Tap Small Hexagonal Socket Low Profile 204.875 - [id number] Implanted:Qty: 1 on 03/17/2022 by David Mckeon MD at [facility] Synthes I 204.875 / / Procedures Procedure Name Priority Date/Time Associated Diagnosis Comments POCT HEMOGLOBIN A1C Routine 04/11/2024 8 :36 AM [employer] Type 1 diabetes mellitus with hyperglycemia (HCC) POCT GLUCOSE Routine 04/11/2024 8:36 AM [employer] Type 1 diabetes mellitus with hyperglycemia (HCC) XR SPINE LUMBAR 2 OR 3 VIEWS ED 02/28/2024 10:28 AM [employer] XR HIP LEFT W PELVIS 2 OR 3 VIEWS ED 02/28/2024 10:28 AM [employer] EGFR Routine 09/07/2023 10:24 AM CDT Type [...] (ABNORMAL) POCT hemoglobin A1c (04/11/2024 8:36 AM [employer]) Hemoglobin A1C, POC 8.1 4.0 - 5.6 % Blood 04/11/2024 8:36 AM [employer] us Kym Gill NP POINT OF CARE TEST ORDERABLES F inal Result * POCT glucose (04/11/2024 8:36 AM [employer]) Glucose Blood, POC 173 mg/dL Blood 04/11/2024 8:36 AM [employer] us Kym Gill NP POINT OF CARE TEST ORDERABLES F inal Result * XR Hip Left 2 or 3 Views W Pelvis (02/28/2024 10:28 AM [employer]) Anatomical Region Laterality Modality Lower Extremities, Hip, Pelvis Left C omputed Radiography 02/28/2024 11:1 4 AM [employer] Narrative 02/28/2024 11:17 AM [employer] EXAM DESCRIPTION: XR HIP LEFT 2 OR [...] Lei Fitzgerald M.D. LC: ZAC Report ID: [id number] Reading Location: [id number] Procedure Note Patty Fitzgerald MD - 02/28/2024 [...] 11:17 AM - Electronically signed by Lei FRANK: ZAC Report ID: [id number] Reading Location: [id number] Robert Cartagena MD IMG XR PROCEDURES Final Result * XR Spine Lumbar 2 or 3 Views (02/28/2024 10:28 AM [employer]) Anatomical Region Laterality Modality Spine N/A Computed Radiogr aphy 02/28/2024 11:1 7 AM [employer] Narrative 02/28/2024 11:21 AM [employer] EXAM DESCRIPTION: XR SPINE LUMBAR 2 OR [...] Lei Fitzgerald M.D. LC: ZAC Report ID: [id number] Reading Location: [id number] Procedure Note Patty Fitzgerald MD - 02/28/2024 [...] Lei Fitzgerald M.D. LC: ZAC Report ID: [id number] Reading Location: [id number] Robert Cartagena MD IMG XR PROCEDURES Final [...] CDT 09/07/2023 6:25 PM CDT Kym Gill NP LAB BLOOD ORDERABLES Final Resu lt Performing Organization Address [facility] Co de Phone Number LARY [address] [address] [place] [address] * Thyroid Function [place] (09/07/2023 10:24 AM CDT) Pathologist [facility] TSH 3.44 0.30 - 4.20 mcIUnit/mL Blood 09/07/2023 10:2 4 AM CDT 09/07/2023 6:14 PM CDT Kym Gill NP LAB BLOOD ORDERABLES Final Resu lt Performing Organization Address [facility] Co de Phone Number LARY [address] [address] [place] [address] * Albumin Creatinine Ratio, Urine (09/07/2023 10:24 AM CDT) Albumin Ur <12.0 mg/L Comment: Interpretive Data No reference range established. Current interpretive data was last revised 2018. Creatinine Ur 270.8 mg/dL LARY ZHOU Comment: Interpretive Data No reference range established. Current interpretive data was last revised 2018. Albumin Creatinine Ratio, Ur <4 1 - 29 mg/g LARY Urine 09/07/2023 10:2 4 AM CDT 09/07/2023 6:14 PM CDT us Kym Gill NP LAB URINE ORDERABLES Final Resu lt LARY [address] [address] Department [place] [address] * (ABNORMAL) Lipid panel (09/07/2023 10:24 AM [...] on 2017. Non-HDL Cholesterol 170 mg/dL LARY Comment: Interpretive Data Ages < [...] been fasting for 8 hours or more?->Yes us Kym Gill NP LAB BLOOD [place] [address] [facility] Department of Laboratories [place], [place] [id number] from Last 3 Months or Most Recently Relevant to Health Maintenance Insurance [facility] [employer] Care Teams Checker Relationship Specialty Start Date End Date Olena Burr MD [address] [place] [address] PCP - General Family Medicine 03/11/22
--- OUTSIDE RECORDS SUMMARY | 2024-04-19 10:13 | XMS_ITS | Data Portability ---
Author Organization [facility] Address [address] [place] [address] [place] [address] Care Team Providers Care Steward/Stewardess Banquet Name Role Phone ASAEL DONALDSON Primary Care Provider [phone] Assessment Encounter Date Assessment Date Assessment LastModified by Organization Details LastModified Time 07/06/2023 07/06/2023 Annual gynecological exam performed. Patient will come back in a year unless there are new symptoms. [email or web address] Not available 07/06/2023 09:13:04 Plan of Treatment Reminders Order Date Submit Date Provider Last Modified By Organization Details Last Modified Time Details Appointments None recorded. Lab test, urine 2023 024 [facility], [address], [address], [place], [address], 4 10:47:15 anti-zhang sara hormone (amh), serum 2024 025 [facility] (Lab), [address], [place], [address], 5 21:39:23 FSH (follicle-s timulating hormone), serum 2024 025 [facility] (Lab), [address], [place], [address], 6 21:39:22 estradiol, serum 2024 025 [facility] (Lab), [address], [place], [address], 5 21:39:22 TSH, serum, reflex free T4 2024 025 [facility] (Lab), [address] [facility], [place], [address], 5 04:08:23 vitamin D, 25-hydroxy, total, serum 2024 025 [facility] (Lab), [address] [facility], [place], [address], 5 04:08:23 prolactin, serum 2024 025 [facility] (Lab), [address] [place], [address], 5 21:39:22 lh (luteinizin g hormone), serum 2024 025 [facility] (Lab), [address] [facility], [place], [address], 5 21:39:23 17-hydroxyp rogesterone , QN, serum 2024 025 [facility] (Lab), [address] [facility], [place], [address], 5 21:39:23 Referral None recorded. Procedures catheteriza tion and introductio n of saline or contrast material for saline infusion sonohystero graphy (SIS) or hysterosalp ingography (PROC) 2024 025 [email or web address] Not available 5 09:31:30 Surgeries None recorded. Imaging US, transvagina l 2024 025 roya [address], [place], [address], 5 09:55:03 US, pelvis 2024 Estela [address], [place], [address], 5 09:55:03 US, saline infused uterus 2024 025 [email or web address] 1 [facility], [address], [place], [address], 5 18:22:11 Medication Orders None recorded. Patient TargetsNo targets recorded. Patient InstructionsNo instructions recorded. Reason for Referral None Reported. 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 Elect jey carrera miah d by Laurence Larson, CT on 024 at 6:50 PM ----- ----- ----- ----- ----- ----- ----- ----- ----- ----- ----- ----- ----- ----- ----- ----- ----- ---- HPV RESUL TS: HPV mRNA E6/E7 : Posit lois - HPV mRNA Detec kadeem HPV GENOT YPE 16 (BARBARA) : Not Detec kadeem HPV GENOT YPE 18/45 (BARBARA) : Detec kadeem NOTE: This high risk HPV mRNA assay detec ts fourt een high- risk HPV types (16, 18, 31, 33, 35, 39, 45, 51, 52, 56, 58, 59, 66, 68) witho ut diffe renti ation . This assay can diffe renti ate HPV 16 from HPV 18/45 , but does not diffe renti ate betwe en HPV 18 and HPV 45. A negat lois HPV 16, 18/45 genot ype assay resul t does not exclu de the possi bilit y of cytol ogic abnor malit ies or of futur e or under lying KILO 1, KILO 3 or cance r. COMME NT: This speci men was revie wed by a Cytot echno logis t and/o r Patho logis t (as indic ated in this repor t) after evalu ation using the Thinp rep Imagi ng Syste m. CLINI OLVIN INFOR MATIO N: Menst rual Statu s: LMP (if appli cable ): Clini olvin Histo ry/Pr eviou s Pap: Type of Neopl pallavi (if appli cable ): Signi fican t Clini olvin Findi ngs: Other Histo ry: Hormo taurus (if appli cable ): PAP EDUCA ZEKE L NOTE: The Pap Test is a scree sophia test with an inher ent false negat lois rate. Liqui d-bas ed sampl ing may decre ase, but will not elimi genoveva, false negat lois resul ts. A negat lois resul t does not precl ude the prese nce and/o r devel opmen t of disea se, since the prese nce of abnor mal cells in the sampl e depen ds on the locat ion of the lesio n and sampl ing techn ique. Romario nued regul ar scree sophia is the best metho d of cance r preve ntion . If repor kadeem cytol ogic findi ng do not corre late with physi olvin and/o r histo rical findi ngs, furth er inves tigat ion is recom deidre d, as clini raine olivera nted. Not Available [facility] (Lab) [address] [facility], [place], [address], 07/10/2023 19:54:13 07/23/19 24 08/03/2023 BIOPS Y, ENDOC ERVIC AL endocervical curettage histology Negati ve normal Not Available [facility] ([facility]) [address] [facility] , [place], [address], 08/03/2023 12:10:15 07/23/19 24 08/03/2023 BIOPS Y, ENDOC ERVIC AL results (A1) ENDOC ERVIX GROSS ING INFOR MATIO N: Recei alvin in forma ashleigh on a soft ecc brush is a 1.8 cm aggre gate of mucus and red brown mater ial. Speci men is filte red and total ly submi tted. A1 DIAGN OSIS: Benig n endoc ervic al tissu e. No ectoc ervic al tissu e. No intra epith elial lesio n. UNSP ABNOR MAL CYTOL OG FINDI NGS IN SPECM N FROM CERVI X UTERI (R87. 619) Not Available [facility] ([facility]) [address], [place], [address], 08/03/2023 12:10:15 07/23/19 24 07/23/2023 pregn mckinley test, urine HCG negati ve Not Available [facility] [place] [address], [place], [address], 07/23/2023 10:47:02 03/28/19 25 03/28/2024 PROLA CTIN prolactin, total 15.00 NG/mL 4.79-2 3.30 This assay was perfo rmed using [employer] ratio n reage nts and test kits. Value s obtai ean with other assay metho ds or kits canno t be used inter [facility] . Not Available [facility] (Lab) [address] [facility], [place], [address], 04/02/2024 21:39:22 03/28/19 25 03/28/2024 ESTRA DIOL estradiol 71.3 pg/mL This assay was perfo rmed using [employer] n reage nts and test kits. Value s obtai ean with other assay metho ds or kits canno t be used inter [facility] . Femal e Estra diol Range s: Folli cular phase 12.4- 233 pg/mL Ovula tion phase 41.0- 398 pg/mL Lutea l phase 22.3- 341 pg/mL Postm enopa usal <5-13 8 pg/mL Healt hy Pregn ant Women 1st Trime ster 154-3 243 pg/mL 2nd Trime ster 1561- 06219 pg/mL 3rd Trime ster 8525- >3000 0 pg/mL Not Available [facility] (Lab) [address] [facility], [place], [address], 04/02/2024 21:39:22 03/28/19 25 03/28/2024 FSH FSH 4.7 mIU/m L This assay was perfo rmed using [employer] ratio n reage nts and test kits. Value s obtai ean with other assay metho ds or kits canno t be used inter [facility] . Femal es Folli cular : 3.5-1 2.5 mIU/m L Ovula tion: 4.7-2 1.5 mIU/m L Lutea l: 1.7-7 .7 mIU/m L Postm enopa use: 25.8- 134.8 mIU/m L Not Available [facility] (Lab) [address] [facility] [address], [place], [address], 04/02/2024 21:39:22 03/28/19 25 03/28/2024 ANTIM JASEN GARCIA (AMH) anti-mulleri an hormone (amh) 1.14 NG/mL Femal e Refer ence Range s 20-24 years : 1.22 - 11.70 ng/mL 25-29 years : 0.89 - 9.85 ng/mL 30-34 years : 0.58 - 8.13 ng/mL 35-39 years : 0.15 - 7.49 ng/mL 40-44 years : 0.03 - 5.47 ng/mL The follo wing resul ts were obtai ean with the Ele[employer] assay . Resul ts from assay s of other manuf actur es canno t be used inter [facility]. Not Available [facility] (Lab) [address] [facility] [address] [facility] [address], [place], [address], 04/02/2024 21:39:22 03/28/19 25 03/28/2024 LH (LUTE NIZIN G HORMO NE) LH 11.0 mIU/m L This assay was perfo rmed using [employer] ratio n reage nts and test kits. Value s obtai ean with other assay metho ds or kits canno t be used inter [facility] . Femal es Mid-F ollic ular: 2.4-1 2.6 mIU/m L Mid-C ycle: 14.0- 95.6 mIU/m L Mid-L uteal : 1.0-1 1.4 mIU/m L Postm enopa use: 7.7-5 8.5 mIU/m L Not Available [facility] (Lab) [address] [facility] [address], [place], [address], 04/02/2024 21:39:23 03/28/19 25 03/28/2024 17-OH PROGE STERO NE 17-hydroxypr ogesterone, lc/MS/MS 63 NG/dL Adult Femal e Refer ence Range s for 17-Hy droxy proge stero ne: Pre-M enopa usal Mid Folli cular : 23-10 2 ng/dL Pre-M enopa usal Surge : 67-34 9 ng/dL Pre-M enopa usal Mid Lutea l: 139-4 31 ng/dL Postm enopa usal Phase : < or = 45 ng/dL Pregn mckinley: First Trime ster: 78-45 7 ng/dL Secon d Trime ster: 90-35 7 ng/dL Third Trime ster: 144-5 78 ng/dL This test was devel oped and its margaret tical perfo rmanc e isabella cteri stics have been deter mined by [employer]. It has not been clear ed or appro alvin by FDA. This assay has been valid ated pursu ant to the CLIA regul ation s and is used for clini olvin purpo ses. Perfo rming Organ izati on Infor matio n: Site ID: [id number] Name: [facility] [employer] [facility]/Michael harpreet [facility] marylou palomoo , Addre ss: [id number] [address] [facility] [place] [address] Direc tor: Talya lopez MD,Ph D,NOEL Not Available [facility] (Lab) [address] [facility] [address], [place], [address], 04/02/2024 21:39:23 04/11/19 25 04/11/2024 US, trans vagin al No observ ation record ed. [email or web address] [facility] [address], [place], [address], 04/11/2024 18:11:45 04/11/19 25 04/11/2024 US, pelvi s No observ ation record ed. [email or web address] [facility] [address], [place], [address], 04/11/2024 18:11:54 04/11/19 25 04/11/2024 US, pelvi s No observ ation record ed. SERA [address] [facility], [place], [address], 04/11/2024 18:44:15 Result Notes None recorded. Problems Name Problem SNOMED Code Status Onset Date Resolution Date Notes Provider Name and Address Organization Details Recorded Time No current problems or disabili ty 558810739 Active Serenity Donohue [place], [place] - [facility] 2 10:25:20 Body mass index 30+ - obesity 832424355 Completed 201504/03/2021 Body mass index (BMI) 30.0-30. 9, adult;Re corded Elsewher e: No Locat ion: [facility] S ource: [employer] michael: N Practi ce ID: 0001 Rene lable Time: 02:00:00 PM Kitty harmon [facility] 2 09:57:37 Screenin g for malignan t neoplasm of cervix Completed 201404/03/2021 Screenin g for malignan t neoplasm s of the cervix;R ecorded Elsewher e: No Locat ion: [facility] [address] S ource: [facility] michael: N Practi ce ID: 0001 Rene lable Time: 10:45:00 AM Kitty harmon [facility] 2 09:57:38 Disorder of thyroid gland 82803143 Completed 201504/03/2021 Disorder of thyroid, unspecif ied;Anatoly rded Elsewher e: No Locat ion: [facility] [address] S ource: [employer] michael: N Practi ce ID: [id number] Rene lable Time: 02:00:00 PM Kitty harmon [facility] 2 09:57:35 Finding of fertilit y Completed 201504/03/2021 Female infertil ity, unspecif ied;Prac analilia ID: [id number] Kitty harmon, [facility] [address] 09:57:[address] Concept Completed 201504/03/2021 Encntr for project management exam (general ) (routine ) w/o abn findings ;Practic e ID: [id number] Kitty harmon, [facility] 2 09:57:43 Obesity 981929451 Completed 201404/03/2021 Obesity, unspecif ied;Prac analilia ID: 0001 Kitty harmon [facility] 2 09:57:44 Speciali zed medical examinat ion Completed 201404/03/2021 Routine gynecolo gical examinat ion;Prac analilia ID: 0001 Kittyleon العر[place]ي [place], [facility] 2 09:57:46 Female infertil ity associat ed with anovulat ion [id number] Completed 201604/03/2021 Female infertil ity associat ed with anovulat ion;Prac analilia ID: 0001 Kitty العراقي [place], [facility] 2 09:57:40 Infertil ity study Completed 201504/03/2021 Encounte r for fertilit y testing; Practice ID: 0001 Kittyleon العر[place], [facility] 2 09:57:48 Problem Notes None recorded. Procedures Surgical History Date Name Laterality Status Provider Name and Address Organization Details Recorded Time 2024 SIS completed ORA MANZO MD [address], [place], [address], [facility] 5 17:02:37 2023 Colposcopy completed [facility] [address], [place], [address], [facility] 4 10:33:28 2023 Colposcopy completed Lexie Romano [facility] 4 10:45:49 2023 Colposcopy completed Lexie Juan Antonio [facility] 4 10:46:18 2023 Date of Last Pap Smear completed Lexie Romano [facility] 4 10:44:51 2022 Colposcopy completed Danielle Amezquita [place]- [address], [place], [address], [facility] 3 12:57:38 2022 Colposcopy completed Purnima Tapia [facility] 4 12:31:55 2022 open reduction of dislocation of ankle [facility] 11:07:11 2022 open reduction of dislocation of ankle [facility] 4 09:14:53 2021 Colposcopy completed BARRIE Sr- [address], [place], [address], [place] [facility] 2 12:54:57 2021 Colposcopy completed Serenity Donohue [facility] 2 17:25:32 2020 [facility]olecyst[facility] 4 09:14:39 2015 hysterosalpingography [facility] 4 12:31:45 2014 Knee arthroscopy/surgery completed [facility] 3 11:06:55 2014 Knee arthroscopy/surgery completed [facility] 3 11:06:50 Imaging Results Imaging Date Name Status LastModified by Organization Details LastModified Time 04/11/2024 US, transvaginal completed [email or web address] [facility] [address], [place], [address], 04/11/2024 18:11:45 04/11/2024 US, pelvis completed wendy Avalos, [place], [address], 04/11/2024 18:11:54 04/11/2024 US, pelvis completed SERA Silv[address], [place], [address], 04/11/2024 18:44:15 Procedure Notes None recorded. Medical Equipment None Reported. Allergies Allergen ID Allergen Name Allergen Category Reaction Reaction Severity Criticality Documentation Date Start Date Code Code System Note Provider Name and Address Organization Details Recorded Time 98338 adhesive environme nt,medica tion Not available Not available Not available 02/23/2020 84889 UNK Kitty Malcom [facility], [facility] 2 09:57:15 80943 phenyleph rine hydrochlo ride medicatio n facial swelling mild Not available 07/06/2023 8164 RxNorm Danielle castillo, [facility]- [address], [place], [address] , [facility] 4 09:15:00 Medications Name Sig Start Date Stop Date Status Note LastModified by Organization Details LastModified Time inpen 100/pink/ tracie/hum alog nigel active Not Available Not Available No t Available clindamyc in HCl 300 mg capsule TAKE 1 CAPSULE BY MOUTH TWICE DAILY FOR 7 DAYS 06/30 completed Not Available Not Available Not Available clomiphen e citrate 50 mg tablet take 1 Tablet by oral route every day for 5 days days 5-9 of cycle 07/11 completed Prescrib ed Elsewher e: No Locat ion: [facility] [address] [facility] M odify By: alina renner DateTime : 07/08/19 17 11:04:55 AM Not Available Not Available Not Available hydrocodo ne 5 mg-acetam inophen 325 mg tablet TAKE 1 TABLET BY MOUTH EVERY 6 HOURS NEEDED FOR PAIN active Not Available Not Available No t Available fluconazo le 200 mg tablet TAKE 1 TABLET BY MOUTH ON DAYS 1,4 & 7 FOR 3 DOSES 06/30 completed Not Available Not Available Not Available meloxicam 15 mg tablet TAKE 1 TABLET BY MOUTH ONCE DAILY active Not Available Not Available No t Available phenazopy ridine 200 mg tablet TAKE 1 TABLET BY MOUTH THREE TIMES DAILY NEEDED URINARY DISCOMFO RT 06/30 completed Not Available Not Available Not Available metronida zole 500 mg tablet TAKE 1 TABLET BY MOUTH EVERY 12 HOURS WITH MEALS FOR 7 DAYS 06/30 completed Not Available Not Available Not Available aspirin 81 mg tablet,de layed release TAKE 1 TABLET BY MOUTH TWICE DAILY FOR 14 DAYS FOR BLOOD CLOT PREVENTI ON. TAKE WITH FOOD. 07/13 completed Not Available Not Available Not Available levothyro xine 25 mcg tablet take 1 tablet by oral route every day 04/15 completed Not Available Not Available Not Available levothyro xine 50 mcg tablet TAKE 1 TABLET BY MOUTH ONCE DAILY AND 2 TABLETS ON WEDNESDAY active Not Available Not Available No t Available mupirocin 2 % topical ointment APPLY OINTMENT TOPICALL Y THREE TIMES DAILY active Not Available Not Available No t Available Novolog U-100 Insulin aspart 100 unit/mL subcutane ous solution inject by subcutan eous route as per insulin sliding scale protocol 04/03 completed Not Available Not Available Not Available insulin lispro (U-100) 100 unit/mL subcutane ous solution INFUSE HUMALOG PER INSULIN PUMP. TOTAL DAILY DOSE OF 100 UNITS active Not Available Not Available No t Available methylpre dnisolone 4 mg tablets in a dose pack active Not Available Not Available Not Available morphine 15 mg immediate release tablet TAKE 1 TABLET BY MOUTH EVERY 4 HOURS NEEDED FOR PAIN 06/30 completed Not Available Not Available Not Available ondansetr on 4 mg disintegr ating tablet DISSOLVE 1 TABLET IN MOUTH EVERY 8 HOURS NEEDED FOR NAUSEA OR VOMITING 06/30 completed Not Available Not Available Not Available sertralin e 50 mg tablet TAKE 1 TABLET BY MOUTH ONCE DAILY active Not Available Not Available No t Available naproxen 500 mg tablet TAKE 1 TABLET BY MOUTH TWICE DAILY WITH MEALS active Not Available Not Available No t Available bupropion HCl XL 300 mg 24 hr tablet, extended release TAKE 1 TABLET BY MOUTH ONCE DAILY 07/22 completed Not Available Not Available Not Available bupropion HCl XL 150 mg 24 hr tablet, extended release TAKE 1 TABLET BY MOUTH ONCE DAILY active Not Available Not Available No t Available nitrofura ntoin monohydra te/macroc rystals 100 mg capsule TAKE 1 CAPSULE BY MOUTH TWICE DAILY FOR 7 DAYS 03/28 completed Not Available Not Available Not Available Lantus U-100 Insulin 100 unit/mL subcutane ous cartridge inject by subcutan eous route as per insulin protocol 10/10 completed Prescrib ed Elsewher e: Yes [facility] By: wes mcdonnell DateTime : 10/27/19 13 02:00:00 PM Not Available Not Available Not Available Levemir U-100 Insulin 100 unit/mL subcutane ous solution inject by subcutan eous route per prescrib er's instruct ions. Insulin dosing requires individu alizatio n. 04/03 completed Not Available Not Available Not Available naloxone 4 mg/actuat ion nasal spray ADMINIST ER A SINGLE SPRAY IN ONE NOSTRIL UPON SIGNS OF OPIOID OVERDOSE . CALL 911. REPEAT AFTER 3 MINUTES IF NO RESPONSE . 06/30 completed Not Available Not Available Not Available Accu-Chek Guide test strips USE NEW STRIP TO TEST SIX TIMES DAILY 07/22 completed Not Available Not Available Not Available Fiasp U-100 Insulin 100 unit/mL subcutane ous solution 04/03 completed Not Available Not Available Not Available Lyumjev U-100 Insulin 100 unit/mL subcutane ous solution FOLLOW SLIDING SCALE DOSE DIRECTED . MAX DAILY DOSE OF 90 UNITS DAILY active Not Available Not Available No t Available Vitals Date Recorded Body height Body mass index (BMI) Body weight Systolic blood pressure Diastolic blood pressure Provider Name and Address Organization Details Last Updated DateTime 07/06/2023 175.26 cm 39.9 kg/m2 145240.9 4 g 111 mm[Hg] 72 mm[Hg] Purnima Tapia [facility] 4 09:13:33 Date Recorded Body height Body mass index (BMI) Body weight Systolic blood pressure Diastolic blood pressure Provider Name and Address Organization Details Last Updated DateTime 07/23/2023 175.26 cm 39.7 kg/m2 472869.3 5 g 126 mm[Hg] 78 mm[Hg] Lexie Romano [facility] 4 10:43:55 Date Recorded Body height Body mass index (BMI) Body weight Systolic blood pressure Diastolic blood pressure Provider Name and Address Organization Details Last Updated DateTime 03/28/2024 175.26 cm 38.7 kg/m2 714928.2 g 114 mm[Hg] 73 mm[Hg] Catherine Medina [facility] 5 11:41:43 Social History Question Answer Notes LastModified by Organizat ion Details LastModified Time Tobacco Smoking Status Never Smoker Lexie Juan Antonio harmon, [facility] 07/13/2022 12:05:47 Do You Have An Advance Directive? No Information n ot available 05/06/2021 What Is Your Level Of Alcohol Consumption? Occasional [email or web address] Information not available 05/06/2021 How Many Years Have You Consumed Alcohol? 10 [email or web address] Information not available 05/27/2021 Are You Blind Or Do You Have Difficulty Seeing? No Information n ot available 05/06/2021 What Is Your Level Of Caffeine Consumption? Occasional [email or web address] Information not available 05/06/2021 How Much Tobacco Do You Chew? None Information not available 05/06/2021 In The 14 Days Before Symptom Onset, Have You Had Close Contact With A Laboratory-confirm ed COVID-19 While That Case Was Ill? No [email or web address] Information n ot available 05/06/2021 In The 14 Days Before Symptom Onset, Have You Had Close Contact With A Person Who Is Under Investigation For COVID-19 While That Person Was Ill? No [email or web address] Information not available 05/06/2021 Have You Been To An Area Known To Be High Risk For COVID-19? No [email or web address] Information not available 05/06/2021 Are You Deaf Or Do You Have Serious Difficulty Hearing? No [email or web address] Information not available 05/06/2021 What Type Of Diet Are You Following? REGULAR Information n ot available 07/13/2022 What Is The Highest Grade Or Level Of School You Have Completed Or The Highest Degree You Have Received? [id number] [email or web address] Information not available 05/06/2021 What Is Your Occupation? [email or web address] Information not available 07/13/2022 Are There Any Guns Present In Your Home? No [email or web address] Information not available 05/06/2021 Have You Ever Been Counseled For Unhealthy Alcohol Use? No Information not available 07/13/2022 Do You Use Protection During Sex? No [email or web address] Information not available 05/06/2021 Do You Use Your Seat Belt Or Car Seat Routinely? Yes Information not available 05/06/2021 Do You Have Smoke And Carbon Monoxide Detectors In Your Home? Yes [email or web address] Information not available 05/06/2021 How Much Tobacco Do You Smoke? No [email or web address] Information not available 05/06/2021 Do You Feel Stressed (tense, Restless, Nervous, Or Anxious, Or Unable To Sleep At Night)? [id number] Information not available 07/13/2022 Do You Use Any Illicit Or Recreational Drugs? No [email or web address] Information not available 05/06/2021 Do You Use Sunscreen Routinely? No Information not available 05/06/2021 Has Tobacco Cessation Counseling Been Provided? No Information not available 07/13/2022 Have You Used IV Drugs? No [email or web address] Information not available 05/06/2021 Do You Or Have You Ever Used Any Other Forms Of Tobacco Or Nicotine? No Information not available 07/13/2022 Sex: Unknown Functional Status Question Answer Note LastModified by Organizat ion Details LastModified Time Do you have difficulty walking or climbing stairs? No Information not available 07/13/2022 Are you able to walk? YESWOREST [email or web address] Information not available 05/06/2021 Are you able to care for yourself? Yes Information not available 07/13/2022 Do you have difficulty dressing or bathing? No Information not available 07/13/2022 What is your exercise level? Occasional [email or web address] Information not available 05/06/2021 Mental Status None recorded. Family History Relationship Description Onset Age of this Age Resolved Age Notes LastModified by Organization Details LastModified Time Father Hypertensive disorder [email or web address] Not available 2021 10:09:35 Father Disorder of thyroid gland [email or web address] Not available 2021 10:09:42 Mother Cyst of ovary [email or web address] Not available 2024 14:50:48 Sister Depressive disorder [email or web address] Not available 2021 10:10:17 Sister Anxiety disorder [email or web address] Not available 2021 10:10:22 Maternal Grandmother Malignant tumor of breast 75 Not available 2024 14:50:48 Maternal Grandmother Malignant tumor of breast [email or web address] Not available 2021 09:48:38 Paternal Aunt Malignant tumor of ovary 30 [email or web address] Not available 2024 14:50:48 Paternal Aunt Malignant tumor of ovary [email or web address] Not available 2021 09:48:38 Notes:Cancer risk form compl ete 03/26/2021 Medical History Condition Response Allergies (Food, seasonal, environmental ) N Other N Breast Cancer N Drug/Latex Allergies/Reactions Y Blood Transfusion N Dermatologic Disorders N Lung Disease N Defects or Inherited Disease N Breast Problem N Gestational Diabetes N Hematologic disorders N Anesthesia Complications N History of STI Y Deep Vein Thrombosis N Polycystic ovary syndrome N Anxiety Disorder Y Autoimmune disease N Arthritis N Infertility N Polyps N Acid Reflux (GERD) N History of abnormal pap Y Cancer N Stroke N Varicosities N Neurologic/Epilepsy N Endometriosis N High Cholesterol N Headaches N Fibromyalgia N Kidney Disease N Heart Problems N Kidney or Bladder Problems N Thyroid Problems Y GI Problems N Eating Disorder N Anemia N Art (IVF or FET) N Psychiatric Illness N Ovarian Cancer N Diabetes Y Pulmonary (TB, Asthma) N Hepatitis/Liver Disease N No Past Medical History N Eczema N Urinary Tract Infection N Abuse/Domestic Violence N Asthma N Trauma/Violence N Depression/ depression Y Heart Disease N Pre-Eclampsia N Hypertension N Osteoporosis N Thrombophilias N Gynecological History Statement/Question Response Date of Last Mammogram Flow Light Date of LMP 02/29/2024 N Was last menstrual period normal Y STIs/STDs Y Desired Control Method None Abnormal Pap Yes On BCP's at Conception? N HPV Vaccine N Colposcopy 07/23/2023 Duration of Flow (days) 6 Current Control Method None Are cycles usually normal Y Frequency of Cycle (Q days) 33 Sexually Active? Y Menses Monthly Y Date of DEXA bone scan Age of first menstrual cycle 14 Date of Last Pap Smear 07/06/2023 Sexual Problems? N LMP Approximate N 04/07/2021 Obstetrics History GPAL:G 0 P 0 0 0 0 Type Value Living 0 Total 0 Past Encounters Encounter ID Performer Location Encounter Start Date Encounter Closed Date Diagnosis/Indication Diagnosis SNOMED-CT Code Diagnosis ICD10 Code Diagnosis Note [id number] Chely Katy [facility] [address] [address] 04/07/2021 09:35:19 04/07/2021 19:41:16 Gynecologic examination 17769013 Z01.419 Z11.51 Take Calcium with Vitamin D 1200mg daily if not receiving in daily diet. It is strongly advised to have an annual flu shot and up can obtain at most pharmacies . If you have not had a TDap shot in the last 10 years you should obtain one as well. Discussed with patient & provided with informatio n regarding Gardisil vaccine to prevent the 4 strains for HPV that cause cervical cancer if under age 26. Encourage safe sexual practices, to use condoms and limit partners if not already in a monogamous relationsh ip. Do monthly self breast exams. Have mammogram yearly or every other year depending on family history. BRCA testing is now available for patients with strong genetic history of female cancer. If interested contact the office. Engage in daily exercise of low impact aerobic exercise 45-60 minutes 4-5 times weekly. Avoid tobacco and illicit drugs as well as using moderation with alcohol intake less than 1-2 8 oz beverages daily. This lifestyle behavior pattern will lead to less health conditions and longer life span. If BMI greater than 25 weight watchers or dietary consult advised. Patient received above instructio ns, and questions have been answered. If you have any questions please call or respond to this email. Patient was made aware of the patient portal and may obtain a paper copy of today's plan if desired. Depressive disorder 9918 1700 V02.A Pt has had thoughts of harming herself but states she would never act on it. She has never had a plan. States s/o is supportive and aware. She is comfortabl e going to him when needed. If any thoughts of harming herself or others she will go to the er. Will increase wellbutrin to 300mg. RTC in 1-2 weeks. Pt will call to re-jong with pcp. [id number] Chely Burns [facility] [address],[place] [address] 04/15/2021 12:05:48 04/17/2021 13:48:11 Mixed anxiety and depressive disorder [id number] F41.8 Plan to return in 1 month for follow up. Sooner if any worsening of symptoms. [id number] [facility] [address],[place] [address] 05/06/2021 10:54:36 05/08/2021 13:04:31 Mixed anxiety and depressive disorder [id number] F41.8 Depressive disorder 0434 9007 F32.A Also has appt with pcp for follow up. She would like to continue current medication and dose. If any worsening of symptoms she will will return. She is aware agrees that if any thoughts of harming herself or others she would need immediate evaluation . [id number] [facility] [address],[place] [address] 05/27/2021 11:47:38 05/27/2021 13:11:37 Low grade squamous intraepithelial lesion on cervical Papanicolaou smear [id number] 9105 R87.612 See procedure notes.Post -procedure instructio ns reviewed with understand ing verbalized .Will contact with results & next steps in plan of care. Booklet & additional resources regarding pap smear/HPV/ Pap results given. [email or web address].g ov/types/c ervical/un derstandin g-abnormal -hpv-and-p ap-test-re sults/unde rstanding- cervical-c hanges.pdf [id number] Chely Tenoriojackelin [facility] [address],[place] [address] 06/30/2022 10:48:30 06/30/2022 15:07:19 Gynecologic examination [id number] Z01.419 Z11.51 Take Calcium with Vitamin D 1200mg daily if not receiving in daily diet. It is strongly advised to have an annual flu shot and up can obtain at most pharmacies . If you have not had a TDap shot in the last 10 years you should obtain one as well. Discussed with patient & provided with informatio n regarding Gardisil vaccine to prevent the 4 strains for HPV that cause cervical cancer if under age 26. Encourage safe sexual practices, to use condoms and limit partners if not already in a monogamous relationsh ip. Do monthly self breast exams. Have mammogram yearly or every other year depending on family history. BRCA testing is now available for patients with strong genetic history of female cancer. If interested contact the office. Engage in daily exercise of low impact aerobic exercise 45-60 minutes 4-5 times weekly. Avoid tobacco and illicit drugs as well as using moderation with alcohol intake less than 1-2 8 oz beverages daily. This lifestyle behavior pattern will lead to less health conditions and longer life span. If BMI greater than 25 weight watchers or dietary consult advised.De sires . Discussed cycle, ovulation, diabetes management , and encouraged pnv with dha and folic acid. Patient received above instructio ns, and questions have been answered. If you have any questions please call or respond to this email. Patient was made aware of the patient portal and may obtain a paper copy of today's plan if desired. [id number] Danielle Amezquita [facility] [address] [address] 07/06/2023 09:00:51 07/06/2023 09:32:08 Gynecologic examination [id number] Z01.419 Take Calcium with Vitamin D 1200mg daily if not receiving in daily diet. It is strongly advised to have an annual flu shot and up can obtain at most pharmacies . If you have not had a TDap shot in the last 10 years you should obtain one as well. Discussed with patient & provided with informatio n regarding Gardisil vaccine to prevent the 4 strains for HPV that cause cervical cancer if under age 26. Encourage safe sexual practices, to use condoms and limit partners if not already in a monogamous relationsh ip. Do monthly self breast exams. Have mammogram yearly or every other year depending on family history. BRCA testing is now available for patients with strong genetic history of female cancer. If interested contact the office. Engage in daily exercise of low impact aerobic exercise 45-60 minutes 4-5 times weekly. Avoid tobacco and illicit drugs as well as using moderation with alcohol intake less than 1-2 8 oz beverages daily. This lifestyle behavior pattern will lead to less health conditions and longer life span. If BMI greater than 25 weight watchers or dietary consult advised. Patient received above instructio ns, and questions have been answered. If you have any questions please call or respond to this email. Patient was made aware of the patient portal and may obtain a paper copy of today's plan if desired. Pap/hpv sentSTD Screen declinedGe netic Screen discussedC olon Screen naDexa [facility] [id number] Danielle Amezquita , [facility] [address],[place] [address] 07/13/2022 11:49:57 07/13/2022 13:12:04 Human papillomavirus deoxyribonucleic acid detected, high risk on cervical specimen [id number] R87.810 See procedure notes.Post -procedure instructio ns reviewed with understand ing verbalized .Will contact with results & next steps in plan of care. Counseled on Pap/HPV guidelines /Testing/R esults with understand ing verbalized .All questions answered to patient satisfacti on. Booklet & additional resources regarding pap smear/HPV/ Pap results given. [email or web address] ov/types/c ervical/un derstandin g-abnormal -hpv-and-p ap-test-re sults/unde rstanding- cervical-c hanges.pdf [id number] Danielle Amezquita [facility] [address],[facility] [address] 07/23/2023 10:30:53 07/29/2023 15:11:02 Screening procedure 10072935 Z13.9 Human haily llomavirus deoxyribonucleic acid detected, high risk on cervical specimen [id number] R87.810 See procedure notes.Post -procedure instructio ns reviewed with understand ing verbalized .Will contact with results & next steps in plan of care. Counseled on Pap/HPV guidelines /Testing/R esults with understand ing verbalized .All questions answered to patient satisfacti on. Booklet & additional resources regarding pap smear/HPV/ Pap results given. [email or web address].g ov/types/c ervical/un derstandin g-abnormal -hpv-and-p ap-test-re sults/unde rstanding- cervical-c hanges.pdf [id number] ORA MANZO MD [facility] [address] [address] 03/28/2024 11:15:57 03/28/2024 12:33:34 Female infertility 3144026 N97.9 - Differenti al diagnosis of cause of infertilit y includes: ovulatory, male factor, structural - We discussed the potential causes of infertilit y and rationale behind testing. We also discussed her reproducti ve potential in the context of her age as well as the risk of aneuploidy .- The patient is asked to complete the following diagnostic work up to include:-- FSH, estradiol, TSH, A1C (to be sent from endo office), Vitamin D, PRL, LH, 17OHP, AMH-- Patient reports previous HSG wnl; no hx of STDs or other risk factors from tubal scarring since that time-- Transvagin al ultrasound with SIS for endometria l cavity assessment , AFC- The patient was asked to have her collect a semen analysis.- Discussed the fertile time of the cycle and options for tracking ovulation, including ovulation predictor kits and basal body temperatur e.-- Discussed timed intercours e every other day starting on Day 6 of period through to the next period.-- Discussed using LH surge kits, usually accurate and would recommend intercours e that day and the next day, then can wait until next cycle.-- Discussed ovulation induction would be considered only after behavioral interventi ons were implemente d and after partner completes semen analysis.- Following the return of these test results she is asked to return to the office for further discussion of reproducti ve planning and treatment options [id number] Mayte Corrigan [facility] [address] [address] 04/11/2024 14:48:46 04/12/2024 09:55:02 Female infertility 0020043 N97.9 - Differenti al diagnosis of cause of infertilit y includes: ovulatory, male factor, structural - Patient reports very weakly positive OPKs- We discussed the potential causes of infertilit y and rationale behind testing. We also discussed her reproducti ve potential in the context of her age as well as the risk of aneuploidy .- The patient is asked to complete the following diagnostic work up to include:-- All labs wnl-- Patient reports previous HSG wnl; no hx of STDs or other risk factors from tubal scarring since that time-- SIS today wnl- The patient was asked to have her collect a semen analysis.- will follow up with semen analysis results and discuss treatment options from that point [id number] ORA MANZO MD [facility] [address] [address] 04/11/2024 14:50:35 04/11/2024 17:42:11 Female infertility 1841603 N97.9 - Differenti al diagnosis of cause of infertilit y includes: ovulatory, male factor, structural - Patient reports very weakly positive OPKs- We discussed the potential causes of infertilit y and rationale behind testing. We also discussed her reproducti ve potential in the context of her age as well as the risk of aneuploidy .- The patient is asked to complete the following diagnostic work up to include:-- All labs wnl-- Patient reports previous HSG wnl; no hx of STDs or other risk factors from tubal scarring since that time-- SIS today wnl- The patient was asked to have her collect a semen analysis.- will follow up with semen analysis results and discuss treatment options from that point Health Concerns Section Related Observation LastModified by Organization Detai ls LastModified Time None Recorded Concern Status LastModified by Organization Details LastModified Time None Recorded Advance Directives Directive N: Payers Encounter Date Sequence Insurance Name Policy Number Policy Brady Covered Member ID Brady Member ID Guarantor Name 07/06/2023 1 [facility] [id number] Merline Cheema [id number] Merline Armijo 07/23/2023 1 [facility] [id number] Merline Cheema [id number] Merline Armijo 03/28/2024 1 [facility] [id number] Merline Cheema [id number] Merline Armijo 04/11/2024 1 [facility] [id number] Merline Cheema [id number] Merline Armijo 04/11/2024 1 [facility] [id number] Merline Akira Cheema [id number] Merline Armijo Notes Date Note Type Note Provider Name and Address Organization Details Recorded Time 07/06/2023 text/html Annual GYNReport ed bypatient.Menstrua l cycle:Normal menses Urinary symptoms:No hematuria; No incontinence Vulva:No genital lesion Vagina:Normal vaginal discharge Breast:No breast pain; No breast lump; No nipple discharge Current Contraception:Sati sfied with current contraception; Condoms Sexual complaints:No sexual complaints; No pain during intercourse; Normal libido Menopausal Symptoms:No menopausal symptoms; Normal vaginal lubrication Psychological symptoms:No depression; No anxiety; No PMDD Preventive measures:Encourage self breast examination; Encourage regular exercise; Encourage no tobacco use; Encourage regular mammograms starting age 40; History of abnormal pap smear/cervical dysplasia Danielle Amezquita [facility] [address], [place], [address], [facility] 07/06/2023 09:23:27 07/23/2023 text/html Here today for colposcopy for abn pap/hpv (+HR HPV/18/45) [facility] [address], [place], [address], [facility] 07/29/2023 10:34:21 03/28/2024 text/html Presents today f or discussion of infertility. She and her partner have been actively been trying to conceive for about 2 years. They have used the following methods to help conceive: cycle tracking, OPKs. Was getting faint positive OPKs The patient reports she has overall regular menstrual periods; she reports 2-3 cycles that are 40 days otherwise normal cycle. She denies a history of extremely painful periods. Menarche age: 14 No prior hx. Hx of T1DM; Dec 2023: HgbA1c 7.8%, fructosamine 6 Hx of hypothyroidism: well controlled with synthroid Her current partner has not fathered children from previous relationships. He denies a history of childhood illnesses or cancers. He denies family history of autism/MR and infertility. He has not completed a semen analysis. He is taking prednisone, mycophenolate, allopurinol, methocarbamol. ORA MANZO MD [address], [place], [address], [facility] 03/28/2024 12:24:59 04/11/2024 text/html Patient presents for SIS. ORA MANZO MD [address], [place], [address], [facility] 04/11/2024 17:30:10 OBGyn Episode No OBEpisode recorded.
== END 2024-04-19 10:26 | disposition home or self-care (01) ==
PROVIDERS: Emergency Provider Registered Nurse; PCP Family Medicine
DX: U07.1 COVID-19 (principal)
CPT/HCPCS: 99211; G0463